=== PATIENT | male | born 1975 | race Caucasian/White ===

== ENCOUNTER 2017-02-04 09:27 | Inpatient (IN) | payer MEDICAID ==
[~2017-02-04] VITALS: Ht 170.2 cm; Wt 75.5 kg
[2017-02-04 10:55] LABS: BASOPHIL % 0.5 % (0-2); PLATELET COUNT 248 x10^3mcL (130-400); RED CELL DISTRIBUTION WIDTH 12.8 % (11.5-14.5)
[2017-02-04 10:58] LABS: CALCIUM 9.3 mg/dL (8.5-10.1); CARBON DIOXIDE 24.3 mmol/L (21-32); CHLORIDE SERUM 101 mmol/L (98-107); CREATININE SERUM 0.7 mg/dL (0.7-1.3); GFR1 > 60 mL/min; GLUCOSE SERUM 152 mg/dL (74-106); POTASSIUM SERUM 3.7 mmol/L (3.5-5.1); SODIUM SERUM 135 mmol/L (136-145)
[2017-02-04 11:02] LABS: ALKALINE PHOSPHATASE 355 U/L (46-116); ALT/SGPT 226 U/L (16-63); AST/SGOT 65 U/L (15-37); TOTAL PROTEIN, SERUM 6.7 g/dL (6.4-8.2)
[2017-02-04 11:07] LABS: BILIRUBIN TOTAL 18.3 mg/dL (0.20-1.00)
[2017-02-04] MEDS ORDERED: APAP/HYDROCODON1 T15 PO (11:57)
[2017-02-04 13:23] LABS: T3 TOTAL 0.91 ng/mL
[2017-02-04 13:24] LABS: CHOLESTEROL/HDL RATIO 28.3; PHOSPHOROUS 2.3 mg/dL (2.5-4.9)
[2017-02-04 13:32] LABS: FREE T4 1.41 ng/dL (0.76-1.46); FREE THYROXINE INDEX 3.2 ug/dL (1.4-4.5); T4(THYROXINE) 8.7 ug/dL (4.7-13.3)
[2017-02-04 14:12] LABS: UA SPECIFIC GRAVITY 1.015 (1.005-1.035); microscopic required? YES; urine erythrocyte NEGATIVE (NEGATIVE)
[2017-02-04 14:21] VITALS: BP 123/61
[2017-02-04 14:28] LABS: AMPHETAMINE QUAL UR NONE DETECTED (NEG <=1000)
[2017-02-04 16:32] VITALS: BP 125/65
[2017-02-04 19:30] VITALS: BP 129/68
[2017-02-05 05:59] VITALS: BP 109/54
[2017-02-05 06:26] LABS: CALCIUM 9.2 mg/dL (8.5-10.1); CARBON DIOXIDE 24.7 mmol/L (21-32); CHLORIDE SERUM 104 mmol/L (98-107); CREATININE SERUM 0.6 mg/dL (0.7-1.3); GFR1 > 60 mL/min; GLUCOSE SERUM 118 mg/dL (74-106); MAGNESIUM 2.2 mg/dL (1.8-2.4); PHOSPHOROUS 4.3 mg/dL (2.5-4.9); POTASSIUM SERUM 3.9 mmol/L (3.5-5.1); SODIUM SERUM 137 mmol/L (136-145)
[2017-02-05 07:39] LABS: BASOPHIL % 1.1 % (0-2); PLATELET COUNT 226 x10^3mcL (130-400); RED CELL DISTRIBUTION WIDTH 13.3 % (11.5-14.5)
[2017-02-05 09:23] VITALS: BP 121/62
[2017-02-05 12:18] VITALS: BP 127/66
[2017-02-05 16:11] VITALS: BP 127/66
== END 2017-02-05 17:40 | disposition short-term general hospital (02) | DRG 282 ==
LOC: ED 09:27 → DU 12:48
PROVIDERS: Emergency Medicine; ADMIT Family Medicine
DX: K86.9 Disease of pancreas, unspecified (principal); N17.0 Acute kidney failure with tubular necrosis; E83.39 Other disorders of phosphorus metabolism; E44.1 Mild protein-calorie malnutrition; R16.0 Hepatomegaly, not elsewhere classified; I89.9 Noninfective disorder of lymphatic vessels and lymph nodes, unspecified; E87.1 Hypo-osmolality and hyponatremia; E78.5 Hyperlipidemia, unspecified; R80.9 Proteinuria, unspecified; Z68.26 Body mass index [BMI] 26.0-26.9, adult; Z87.891 Personal history of nicotine dependence
CPT/HCPCS: 83880; 84439; 90658; J0295; J1885; J7030; Q0092; Q9967